=== PATIENT | female | born 1970 | race Two or more races ===

== ENCOUNTER 2019-04-24 15:41 | Emergency (ER) | payer OTHER ==
--- NOTE | 2019-04-24 18:46 | UC ---
Headache HPI - HPI Summary HPI Summary: The patient is a 49-year-old female with a 6 week history of almost daily headaches. She had never had headaches that lasted this long. She states it's a pressure sensation. Sometimes a pressure sensation is bitemporal. Sometimes it is occipital. She has had nasal congestion. Occasionally her ears pop. She denies any postnasal drip. She states that her headaches interfere with her work. When she gets them she is unable to concentrate. They seem to be relieved with [id number] medicines. She has no history of cancer. She doesn't denies any history of stroke. She has had no fever or chills. She denies any neck pain. - History Of Current Complaint Chief Complaint: Grace Stated Complaint: SINUS PAIN Time Seen by Provider: 04/24/19 18:11 Hx Obtained From: Patient Onset/Duration: Gradual Onset, Lasting Weeks Onset Of Symptoms: Gradual Currently Pain Is: Mild Pain Intensity: 4 - higher at times Pain Scale Used: 0-10 Numeric Timing: Intermittent, Lasting: - hours Character: Pressure Location of Headache: Temporal, Occipital Aggravating Factor(s): Nothing Allevating Factor(s): Medication Associated Signs And Symptoms: Positive: Sinus Pressure. Negative: Dizziness, Seizure, Nausea, Vomiting, Fever, Neck Pain, Neck Stiffness, Decreased LOC, Visual Changes - Allergies/Home Medications Allergies/Adverse Reactions: Allergies Allergy/AdvReac Type Severity Reaction Status Date / Time No Known Allergies Allergy Verified 04/24/19 16:30 PMH/Surg Hx/FS Hx/Imm Hx Previously Healthy: Yes - Surgical History Surgical History: Yes Surgery Procedure, Year, and Place: c section 22 years ago - Family History Known Family History: Positive: Hypertension - Social History Alcohol Use: None Substance Use Type: None Smoking Status (MU): Never Smoked Tobacco Review of Systems All Other Systems Reviewed And Are Negative: Yes Constitutional: Positive: Fatigue Skin: Positive: Negative Eyes: Positive: Negative ENT: Positive: Sinus Congestion, Sinus Pain/Tenderness Respiratory: Positive: Negative Cardiovascular: Positive: Negative Gastrointestinal: Positive: Negative Genitourinary: Positive: Negative Motor: Positive: Negative Neurovascular: Positive: Negative Musculoskeletal: Positive: Negative Neurological: Positive: Headache Physical Exam Triage Information Reviewed: Yes Appearance: Well-Appearing, No Pain Distress, Well-Nourished Vital Signs: Initial Vital Signs Temp 99.2 F 04/24/19 16:25 Pulse 62 04/24/19 16:25 Resp 16 04/24/19 16:25 BP 125/77 04/24/19 16:25 Pulse Ox 99 04/24/19 16:25 Vital Signs Reviewed: Yes Eyes: Positive: Conjunctiva Clear, Other: - eomi/perrl/fundi benign ENT: Positive: Hearing grossly normal, Sinus tenderness - slight. Negative: Nasal congestion, Nasal drainage, Tonsillar swelling, Tonsillar exudate Neck: Positive: Supple, Nontender, No Lymphadenopathy Respiratory: Positive: Lungs clear, Normal breath sounds, No respiratory distress Cardiovascular: Positive: RRR, No Murmur Musculoskeletal: Positive: ROM Intact, No Edema Neurological: Positive: Alert, Other: - cn 2-12 intact, normal gait, non focal exam Psychological Exam: Normal Skin Exam: Normal Diagnostics - Radiology No standard instances Radiology Interpretation Completed By: Radiologist Summary of Radiographic Findings: CT brain- negative Headache Course/Dx - Differential Dx/Diagnosis Provider Diagnosis: Headache, Sinus pressure Discharge ED - Sign-Out/Discharge Documenting (check all that apply): Patient Departure All imaging exams completed and their final reports reviewed: Yes - Discharge Plan Condition: Stable Disposition: HOME Prescriptions: Fluticasone NASAL SPRAY 50MCG* [Flonase NASAL SPRAY 50MCG*] 2 spray BOTH NARES BID #1 btl Patient Education Materials: Acute Headache (ED) Referrals: [facility] [Outside] - 2 Weeks Additional Instructions: I suggest saline nasal spray : 2 sprays each nostril twice daily followed 5 minutes later by flonase 2 sprays each nostril twice daily advil or tylenol you need to find a primary care for follow up - Billing Disposition and Condition Condition: STABLE Disposition: Home
[2019-04-24 18:53] VITALS: BP 132/85
== END 2019-04-24 19:25 | disposition home or self-care (01) ==
LOC: UCEAST 15:41
DX: R51 Headache (principal); J34.89 Other specified disorders of nose and nasal sinuses
CPT/HCPCS: 70450; 99202; G0463